=== PATIENT | male | born 1985 | race Two or more races ===

== ENCOUNTER 2024-05-18 08:33 | Emergency (ER) | payer MEDICAID ==
[~2024-05-18] VITALS: Ht 175.3 cm; Wt 84.8 kg
[2024-05-18 08:42] VITALS: BP 116/65; TEMP 98.1; O2SAT 100
[2024-05-18] MEDS ORDERED: IBUP-1955 PO (10:42)
== END 2024-05-18 10:54 | disposition home or self-care (01) ==
LOC: ER 08:38
DX: S93.505A Unspecified sprain of left lesser toe(s), initial encounter (principal); S90.122A Contusion of left lesser toe(s) without damage to nail, initial encounter; X58.XXXA Exposure to other specified factors, initial encounter; Y93.89 Activity, other specified; Y92.098 Other place in other non-institutional residence as the place of occurrence of the external cause; Y99.8 Other external cause status
CPT/HCPCS: 73660-TC